=== PATIENT | female | born 1970 | race Caucasian/White ===

== ENCOUNTER 2019-01-29 15:48 | Outpatient (CLI) | payer OTHER ==
[2019-01-29 16:06] LABS: BASOPHILS % 0.6 % (0.0-1.5); NEUTROPHILS # 7.8 # k/uL (1.4-7.7)
== END 2019-01-29 15:50 ==
LOC: LAB 15:48
PROVIDERS: ATTEND Orthopaedic Surgery
DX: Z00.00 Encounter for general adult medical examination without abnormal findings (principal)
CPT/HCPCS: 36415; 85025

== ENCOUNTER 2019-03-04 13:27 | Outpatient (CLI) | payer OTHER ==
--- NOTE | 2019-03-11 16:01 | OP Clinic Progress Note ---
PROGRESS NOTE: The patient is seen for recheck post 02/18/2019 arthroscopy of left knee. 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 She also underwent partial medial and lateral meniscectomies and arthroscopic partial synovectomy as there was some mild synovitis. PHYSICAL EXAMINATION: Incisions are healing in well. Sutures removed, no erythema or indurations noted. She has near full extension, lacking 5 degrees or less. She does flex her left knee to approximately 95 degrees readily. She has no obvious effusion, although this is difficult to assess in view of her BMI, noting that she does weigh 334 pounds. PLAN: She is happy with the results at this point and I did recommend that she get started with some formal physical therapy for rehab. She is not requiring much if any medication at this point postoperatively for the pain, says it is not really hurting such that she needs to take anything strong. I did discuss expectations and limitations with her short-term and long-term. She does generally work in the agricultural world, does a lot of farm work, and we discussed what is likely to be tolerated and what might not be tolerated. She is going to recheck with me in another month. Hayden Pack MD/[employer] [id number] Job #[id number] cjd PAM
== END 2019-03-04 14:00 ==
LOC: ORHTO 13:27
PROVIDERS: ATTEND Orthopaedic Surgery
DX: Z47.89 Encounter for other orthopedic aftercare (principal)
CPT/HCPCS: 99212

== ENCOUNTER 2019-04-01 13:00 | Outpatient (CLI) | payer OTHER ==
--- NOTE | 2019-04-23 10:39 | OP Clinic Progress Note ---
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 PHYSICAL EXAMINATION: Incisions have healed in well. She does have near full extension, lacking 5 degrees or less. She does flex to 112 degrees in therapy, and I am able to get her to a 105 degrees readily today. She is noted to be continuing with outpatient visits at the [facility] in [place], is seeing Raza Dietz PTA, there, most recently on March 31, 2019. She has attended seven physical therapy sessions thus far as an outpatient. She is making steady improvements, does have some mild discomfort on the anterior inferior aspect of the knee, no erythema or induration. I note that she has decided to proceed with gastric sleeve, and she thinks that will take place in early June. PLAN: I did discuss expectations and limitations with her. She is going to recheck with me on an as-needed basis. I did recommend she continue the outpatient physical therapy visits once or twice a week for rehab as long as measurable gains are being made on a weekly basis. She should, as she has been doing, continue with a concurrent home program. Once she is no longer making measurable gains on a weekly basis as an outpatient, she should progress to a home program exclusively. Prescription is written to that effect. I will see her again on an as-needed basis. All of her questions are answered to her voiced satisfaction. She voices understanding that she will need to expect to modify her activities in such a way as to avoid aggravating that knee, given the underlying pathology, and I applauded her weight reduction efforts as I expect that will be particularly beneficial for her in buying some time before that knee does start to bother her again in as significant a fashion as it has previously, or more so. Hayden Pack MD /[employer] [id number] Job #[id number] brendan OROZCO
== END 2019-04-01 13:25 ==
LOC: ORHTO 13:00
PROVIDERS: ATTEND Orthopaedic Surgery
DX: Z48.817 Encounter for surgical aftercare following surgery on the skin and subcutaneous tissue (principal)
CPT/HCPCS: 99212